=== PATIENT | female | born 1990 | race Hispanic/Latino ===

== ENCOUNTER 2020-05-17 18:16 | Emergency (ER) | payer OTHER ==
[~2020-05-17] VITALS: Ht 167.6 cm; Wt 120.2 kg
[2020-05-17] MEDS ORDERED: KETOROLAC TROMETHAMINE 30 MG/ML VIAL IV STA (18:40)
--- NOTE | 2020-05-17 18:44 | Emergency Department Note ---
History of Present Illnes History of Present Illness Chief Complaint: Chest Pain History of Present Illness This is a 29 year old female IN FROM HOME WITH COMPLAINTS OF LEFT SIDED CHEST PAIN SINCE 1430; STATES IT IS WORSE WITH INSPIRATION; RATES PAIN 8/10. PATIENT APPEARS ANXIOUS AND TEARFUL IN TRAIGE. . 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 Required: No Onset (how long ago): hour(s) (4) Location: LEFT CHEST Quality: PAIN, HURTS TO BREATH Radiation: Reports non-radiation Severity: severe Onset quality: sudden Duration (how long): hour(s) (4) Timing of current episode: constant Progression: unchanged Chronicity: new Context: Denies recent illness, Denies recent surgery, Denies trauma/injury Relieving factors: none Exacerbating factors: other (INSPIRATION) Associated symptoms: Reports denies other symptoms Treatments prior to arrival: none Past Medical/Family History Physician Review I have reviewed the patient's past medical and family history. Any updates have been documented here. Past Medical History Recent Fever: No Clinical Suspicion of Infectio: No New/Unexplained Change in Ment: No Past Medical History: None Past Surgical History: Cholecysctectomy, Social History Smoking Cessation: Current some day smoker Alcohol Use: Occasional Any Illegal Drug Use: No Physically hurt or threatened: No Family History Family history of heart diseas: No Review of Systems Review of Systems Constitutional: Reports no symptoms EENTM: Reports no symptoms Cardiovascular: Reports as per HPI Respiratory: Reports as per HPI Gastrointestinal: Reports no symptoms Genitourinary: Reports no symptoms Musculoskeletal: Reports no symptoms Integumentary: Reports no symptoms Neurological: Reports no symptoms Psychological: Reports no symptoms Endocrine: Reports no symptoms Hematological/Lymphatic: Reports no symptoms Physical Exam Related Data Allergies: Coded Allergies: No Known Allergies (Unverified , 05/17/20) Triage Vital Signs Vital Signs Date Time Temp Pulse Resp B/P (MAP) Pulse Ox O2 Delivery O2 Flow Rate FiO2 05/17/20 18:29 97.0 81 26 122/79 100 Room Air Vital signs reviewed: Yes Physical Exam CONSTITUTIONAL Constitutional: Present well-developed, Present well-nourished, Present distressed (MILD), Present other (ANXIOUS) HENT HENT: Present normocephalic, Present atraumatic, Present oropharynx clear/moist, Present nose normal HENT L/R: Present left ext ear normal, Present right ext ear normal EYES Eyes: Reports PERRL, Reports conjunctivae normal NECK Neck: Present ROM normal PULMONARY Pulmonary: Present effort normal, Present breath sounds normal CARDIOVASCULAR Cardiovascular: Present regular rhythm, Present heart sounds normal, Present capillary refill normal, Present normal rate GASTROINTESTINAL Abdominal: Present soft, Present nontender, Present bowel sounds normal GENITOURINARY Genitourinary: Present exam deferred SKIN Skin: Present warm, Present dry MUSCULOSKELETAL Musculoskeletal: Present ROM normal NEUROLOGICAL Neurological: Present alert, Present oriented x 3, Present no gross motor or sensory deficits PSYCHOLOGICAL Psychological: Present mood/affect normal, Present judgement normal Results Laboratory Laboratory Laboratory Tests Test 05/17/20 21:18 05/17/20 18:52 05/17/20 18:32 White Blood Count 16.86 x10e3/uL (4.8-10.8) Red Blood Count 4.45 x10e6/uL (3.6-5.1) Hemoglobin 13.3 g/dL (12.0-16.0) Hematocrit 41.1 % (34.2-44.1) Mean Corpuscular Volume 92.4 fL (81-99) Mean Corpuscular Hemoglobin 29.9 pg (28-32) Mean Corpuscular Hemoglobin Concent 32.4 g/dL (31-35) Red Cell Distribution Width 12.7 % (11.7-14.4) Platelet Count 432 x10e3/uL (140-360) Neutrophils (%) (Auto) 70.9 % (38.7-80.0) Lymphocytes (%) (Auto) 21.7 % (18.0-39.1) Monocytes (%) (Auto) 3.4 % (4.4-11.3) Eosinophils (%) (Auto) 3.0 % (0.0-6.0) Basophils (%) (Auto) 0.5 % (0.0-1.0) Neutrophils # (Auto) 12.0 (2.1-6.9) Lymphocytes # (Auto) 3.7 (1.0-3.2) Monocytes # (Auto) 0.6 (0.2-0.8) Eosinophils # (Auto) 0.5 (0.0-0.4) Basophils # (Auto) 0.1 (0.0-0.1) Absolute Immature Granulocyte (auto 0.09 x10e3/uL (0-0.1) D-Dimer Quantitative (PE/DVT) 0.31 ug/mLFEU (0.00-0.45) Sodium Level 136 mmol/L (136-145) Potassium Level 4.2 mmol/L (3.5-5.1) Chloride Level 103 mmol/L (98-107) Carbon Dioxide Level 22 mmol/L (22-29) Anion Gap 15.2 mmol/L (8-16) Blood Urea Nitrogen 11 mg/dL (7-26) Creatinine 0.72 mg/dL (0.57-1.11) Estimat Glomerular Filtration Rate > 60 ML/MIN (60-) BUN/Creatinine Ratio 15 (6-25) Glucose Level 77 mg/dL (74-118) Calcium Level 8.9 mg/dL (8.4-10.2) Total Bilirubin 0.5 mg/dL (0.2-1.2) Aspartate Amino Transf (AST/SGOT) 17 IU/L (5-34) Alanine Aminotransferase (ALT/SGPT) 32 IU/L (0-55) Alkaline Phosphatase 66 IU/L (40-150) Creatine Kinase 40 IU/L (29-168) Creatine Kinase MB < 1.00 ng/mL (0-4.3) Troponin I < 0.05 ng/mL (0.0-0.40) Total Protein 8.1 g/dL (6.5-8.1) Albumin 4.4 g/dL (3.5-5.0) Globulin 3.7 g/dL (2.3-3.5) Albumin/Globulin Ratio 1.2 (0.8-2.0) Urine Color Colorless (YELLOW) Urine Clarity Clear (CLEAR) Urine pH 7 (5 - 7) Urine Specific [place] 1.015 (1.010-1.025) Urine Protein Negative (NEGATIVE) Urine Glucose (UA) Negative (NEGATIVE) Urine Ketones Trace (NEGATIVE) Urine Blood Negative (NEGATIVE) Urine Nitrite Negative (NEGATIVE) Urine Bilirubin Negative (NEGATIVE) Urine Urobilinogen 0.2 mg/dL (0.2 - 1) Urine Leukocyte Esterase Negative (NEGATIVE) Urine RBC 0-5 /HPF (0-5) Urine WBC 0-5 /HPF (0-5) Urine Epithelial Cells Rare /LPF (NONE) Urine Bacteria Rare /HPF (NONE) Urine Test Negative (NEGATIVE) Imaging Imaging results reviewed: Yes Impressions Procedure: [id number] DX/CHEST SINGLE (PORTABLE) Exam Date: 05/17/20 Exam Time: 1909 REPORT STATUS: Signed EXAMINATION: CHEST SINGLE (PORTABLE) COMPARISON: None INDICATION: ^CHEST PAIN ^[id number] ^1909 ^Y DISCUSSION: Frontal view of the chest obtained at 1926 hours. HEART AND MEDIASTINUM: The cardiomediastinal silhouette is unremarkable. LINES: None. LUNGS: Lung volumes are diminished but are well inflated and clear. No pneumonia or pulmonary edema. PLEURA: No pleural effusion or pneumothorax. BONES AND SOFT TISSUES: No focal osseous lesion. The soft tissues are normal. IMPRESSION: No acute cardiopulmonary disease. Signed by: Dr. Zachery Bass MD on 05/17/2020 7:45 PM Dictated By: ZACHERY BASS MD 44 Transcribed By: CHUCK on 05/17/201944 COPY TO: CARLEY LUNA MD~ Procedures 12 Lead ECG Interpretation ECG Interpretation : ECG: ECG 1 Design Cell Engineer: Interpreted by ED physician Date: May 17, 2020 Time: 18:43 Rhythm: sinus rhythm Rate: normal BPM: 76 QRS axis: normal ST segments normal: Yes T wave inversion: III Other findings: no other findings Clinical Impression: non-specific ECG Assessment & Plan Medical Decision Making MDM PT WITH LEFT SIDE CHEST PAIN WORSE WITH INSPIRATION CBC, CMP, EKG, CARDIAC ENZYMES, CXR, D-DIMER ORDERED TO EVAL FOR MYOCARDIAL INFARCTION, PNEUMONIA, PNEUMOTHORAX, ELECTROLYTE ABNORMALITY TORADOL 30 MG IV ORDERED Reassessment Reassessment time: 23:43 Reassessment PAIN HAS IMPROVED SINCE RECEIVING TORADOL Assessment & Plan Final Impression: (1) Pleurisy Depart Disposition: HOME, SELF-CARE Last Vital Signs Date Time Temp Pulse Resp B/P (MAP) Pulse Ox O2 Delivery O2 Flow Rate FiO2 05/17/20 18:29 97.0 81 26 122/79 100 Room Air CARLEY LUNA MD May 17, 2020 18:44
[2020-05-17 19:29] LABS: BILIRUBIN,URINE NEGATIVE (NEGATIVE); CLARITY,URINE CLEAR (CLEAR); COLOR,URINE COLORLESS (YELLOW); KETONES,URINE TRACE (NEGATIVE); LEUKOCYTE ESTERASE ,URINE NEGATIVE (NEGATIVE); NITRITE,URINE NEGATIVE (NEGATIVE); PROTEIN,URINE DIPSTICK NEGATIVE (NEGATIVE); URINE UROBILINOGEN 0.2 mg/dL (0.2 - 1)
[2020-05-17 19:40] LABS: BACTERIA,URINE RARE /HPF; EPITHELIAL CELLS,URINE RARE /LPF; RBC,URINE 0-5 /HPF (0-5); WBC,URINE (MAN) 0-5 /HPF (0-5)
--- NOTE | 2020-05-17 19:48 | Diagnostic Imaging Report ---
EXAMINATION: CHEST SINGLE (PORTABLE) COMPARISON: None INDICATION: ^CHEST PAIN ^[id number] ^1909 ^Y DISCUSSION: Frontal view of the chest obtained at 1926 hours. HEART AND MEDIASTINUM: The cardiomediastinal silhouette is unremarkable. LINES: None. LUNGS: Lung volumes are diminished but are well inflated and clear. No pneumonia or pulmonary edema. PLEURA: No pleural effusion or pneumothorax. BONES AND SOFT TISSUES: No focal osseous lesion. The soft tissues are normal. IMPRESSION: No acute cardiopulmonary disease. Signed by: Dr. Liliam Bass MD on 05/17/2020 7:45 PM
[2020-05-17 21:40] LABS: BASOPHILS # (AUTO) 0.1 (0.0-0.1); BASOPHILS % 0.5 % (0.0-1.0); EOSINOPHILS # (AUTO) 0.5 (0.0-0.4); HEMATOCRIT 41.1 % (34.2-44.1); HEMOGLOBIN 13.3 g/dL (12.0-16.0); LYMPHOCYTES # (AUTO) 3.7 (1.0-3.2); LYMPHOCYTES % 21.7 % (18.0-39.1); MEAN CORPUSCULAR HEMOGLOBIN 29.9 pg (28-32); MEAN CORPUSCULAR HGB CONC 32.4 g/dL (31-35); MEAN CORPUSCULAR VOLUME 92.4 fL (81-99); MONOCYTES # (AUTO) 0.6 (0.2-0.8); MONOCYTES % 3.4 % (4.4-11.3); NEUTROPHILS % 70.9 % (38.7-80.0); PLATELET COUNT 432 x10e3/uL (140-360); RED BLOOD COUNT 4.45 x10e6/uL (3.6-5.1); RED CELL DISTRIBUTION WIDTH 12.7 % (11.7-14.4)
[2020-05-17] MEDS ORDERED: KETOROLAC TROMETHAMINE 30 MG/ML VIAL ONE (21:49)
[2020-05-17 21:59] LABS: ALANINE AMINOTRANSFERASE 32 IU/L (0-55); ALBUMIN 4.4 g/dL (3.5-5.0); ALBUMIN/GLOBULIN RATIO 1.2 (0.8-2.0); ALKALINE PHOSPHATASE 66 IU/L (40-150); ANION GAP 15.2 mmol/L (8-16); BLOOD UREA NITROGEN 11 mg/dL (7-26); CALCIUM 8.9 mg/dL (8.4-10.2); CARBON DIOXIDE 22 mmol/L (22-29); CHLORIDE 103 mmol/L (98-107); CREATINE KINASE 40 IU/L (29-168); GLUCOSE 77 mg/dL (74-118); POTASSIUM 4.2 mmol/L (3.5-5.1); SODIUM 136 mmol/L (136-145)
[2020-05-17 22:01] LABS: CREATINE KINASE MB < 1.00 ng/mL (0-4.3)
[2020-05-17 22:19] LABS: BUN/CREATININE RATIO 15 (6-25); CREATININE, SERUM 0.72 mg/dL (0.57-1.11); EST GLOMERULAR FILTRATION RATE > 60 ML/MIN (60-)
--- NOTE | 2020-05-17 23:38 | NUR ---
PT BROUGHT BACK TO TRIAGE ROOM, BEING UPDATED AND RE-ASSESSED BY ED MD.
== END 2020-05-17 23:46 | disposition home or self-care (01) ==
LOC: ER 19:04
DX: R07.89 Other chest pain (principal); R09.1 Pleurisy; F17.200 Nicotine dependence, unspecified, uncomplicated
CPT/HCPCS: 36415; 71045; 80053; 81001; 81025; 82550; 82553; 84484; 85025; 85379; 93005; 99284; J1885